=== PATIENT | male | born 1995 | race Caucasian/White ===

== ENCOUNTER 2023-02-26 10:04 | Emergency (ER) | payer OTHER, SELFPAY ==
[2023-02-26 10:08] VITALS: BP 145/88; PULSE 81; RESP 18; TEMP 37.2; O2SAT 100; BMI 26.4
--- NOTE | 2023-02-26 10:38 | ED_ITS ---
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 He states has been persistent since then. It hurts for him to swallow however has no respiratory distress. No rashes. No vomiting. No fevers. It is tender to palpation. He feels like his throat is swollen. Related Data Allergies Allergy/AdvReac Type Severity Reaction Status Date / Time No Known Drug Allergies Allergy Verified 02/26/23 10:08 Review of Systems Constitutional Constitutional: Reports system reviewed and no additional complaints, except as documented ENT Ears, Nose, Mouth, and Throat: Reports system reviewed and no additional complaints, except as documented Respiratory Respiratory: Reports system reviewed and no additional complaints, except as documented Integumentary/Breasts Skin/Breast: Reports system reviewed and no additional complaints, except as documented Hematologic/Lymphatic Hematologic/Lymphatic: Reports system reviewed and no additional complaints, except as documented Allergic/Immunologic Allergic/Immunologic: Reports system reviewed and no additional complaints, except as documented Patient History Social History Smoking Status: Never smoker Smoking Status: Never smoker alcohol intake frequency: holidays/special occasions only Substance Use Type: does not use Exam Initial Vital Signs Initial Vital Signs: Vital Signs Temperature 98.9 F 02/26/23 10:08 Pulse Rate 81 02/26/23 10:08 Respiratory Rate 18 02/26/23 10:08 Blood Pressure 145/88 H 02/26/23 10:08 Pulse Oximetry 100 02/26/23 10:08 Oxygen Delivery Method Room Air 02/26/23 10:08 HENMT Head: normal to inspection and normocephalic Mouth: oral mucosae normal and No moist mucous membranes Throat: no peritonsillar masses Neck Other: Thyroid is tender to palpation. No definitive masses seen. Resp Effort & Inspection: normal respiratory effort Skin General: no rashes or lesions noted Neuro General: patient alert, patient awake and moves all extremities Extrem General: normal to inspection and capillary refill normal Course Orders Ordered: ED Orders 02/26/23 11:35 Throat Culture Stat 02/26/23 11:40 BMP [Basic Metabolic Panel] Stat CBC Auto Diff [Complete Blood Count AUTO DIFF] Stat Free T3, Triiodothyronine Free Stat Free T4, Direct Thyroxine Stat Strep Grp A by PCR Rapid Stat TSH [Thyroid Stimulating Hormone] Stat Discontinued Medications Diphenhydramine HCl (Diphenhydramine 25 Mg Tablet) 25 mg PO NOW ONE Stop: 02/26/23 10:27 Last Admin: 02/26/23 10:46 Dose: 25 mg Documented By: VICENTE Prednisone (Prednisone 20 Mg Tablet) 20 mg PO NOW ONE Stop: 02/26/23 10:27 Last Admin: 02/26/23 10:47 Dose: 20 mg Documented By: VICENTE Vital Signs Vital signs: Vital Signs - 8 hr 02/26/23 13:34 Pulse Rate 61 Respiratory Rate 18 Blood Pressure 137/77 Pulse Oximetry 98 Oxygen Delivery Method Room Air MDM - Allergic Reaction Lab Data 02/26/23 11:40 02/26/23 11:40 Labs: Lab Results 02/26/23 Range/Units 11:40 WBC 6.1 (4.5-11.0) X10^3/uL RBC 5.42 (4.5-5.9) X10^6/uL Hgb 17.3 (13.5-17.5) g/dL Hct 49.4 (41-53) % MCV 91.2 (80-100) fL MCH 31.9 (26-34) PG MCHC 35.0 (30-36) % RDW 13.0 (11.6-14.8) % Plt Count 279 (150-400) X10^3/uL Neut % (Auto) 52.9 (50-75) % Lymph % (Auto) 33.6 (25-40) % Isabela % (Auto) 11.4 (3-14) % Eos % (Auto) 1.6 L (2-4) % Baso % (Auto) 0.5 (0-2) % Neut # (Auto) 3200 (2115-6406) /uL Lymph # (Auto) 2000 (7932-0040) /uL Isabela # (Auto) 700 (0-900) /uL Eos # (Auto) 100 (0-450) /uL Baso # (Auto) 0 (0-100) /uL Sodium 138 (137-145) mmol/L Potassium 4.1 (3.4-5.1) mmol/L Chloride 98 (98-107) mmol/L Carbon Dioxide 31 (22-32) mmol/L BUN 16 (9-20) mg/dL Creatinine 1.09 (0.66-1.25) mg/dL Estimated GFR > 60 (>60) mL/min BUN/Creatinine Ratio 14.7 (6-22) Glucose 95 (70-100) mg/dL Calcium 10.0 (8.4-10.2) mg/dL TSH 1.45 (0.47-4.68) uIU/mL Free T4 1.01 (0.78-2.19) ng/dL Free T3 4.81 (2.77-5.27) pg/mL Group A Strep (PCR) Negative (Negative) MDM Narrative Medical decision making narrative: Discomfort that the patient is describing is over his thyroid which is prominent. No nodules were felt. No respiratory distress. His oropharynx is unremarkable. He has no improvement after the Benadryl and steroids. I am not convinced that his symptoms today are related to the fish that he ate last evening. I am not convinced that he has having an allergic reaction. I am more concerned that the events are unrelated. His TSH is unremarkable. We did discuss the possibility that he is still having a thyroiditis causing an inflamed thyroid but his TSH is not yet elevated. Advised that he talk with his medical provider about this as he may need a repeat TSH if his symptoms are not improving. 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 He can try [id number] Cepacol drops and other sore throat sprays. I do not think putting him on prolonged steroids is going to improve anything. Considered ordering a thyroid ultrasound today but he does not have any specific nodules and with a normal TSH feel like this would be unhelpful as well. We will see if his symptoms improve over the next couple days. He was given specific return precautions and follow-up instructions. He expressed understanding and agreement. Discharge Plan Departure Patient Disposition: Home Clinical Impression: Sore throat Activity Restrictions/Additional Instructions: Like we discussed I am not convinced that this is an allergic reaction. There was a throat culture pending at the time of your discharge and we will contact you if we need to start any antibiotics. 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 You can use the [id number] sore throat lozenges. If your symptoms worsen or you develop any sort of lumps/bumps then you do need to be re-evaluated so that we can do an ultrasound of your thyroid. If you start to develop fevers for coughing then an evaluation for another infectious source such as COVID/flu would be needed. Return to the emergency department like we discussed. Stand Alone Forms: Patient Portal/API
[2023-02-26] MEDS: diphenhydrAMINE 25 MG TABLET PO (10:46)
[2023-02-26] MEDS: predniSONE 20 MG TABLET PO (10:47)
[2023-02-26 11:51] LABS: Add Manual Diff / Slide Review NO; Basophils Absolute Auto 0 /uL (0-100); Basophils Percent Auto 0.5 % (0-2); Eosinophils Absolute Auto 100 /uL (0-450); Eosinophils Percent Auto 1.6 % (2-4); Hematocrit 49.4 % (41-53); Hemoglobin 17.3 g/dL (13.5-17.5); Lymphocytes Absolute Auto 2000 /uL (1100-4500); Lymphocytes Percent Auto 33.6 % (25-40); Mean Corpuscular Hemoglobin 31.9 PG (26-34); Mean Corpuscular Volume 91.2 fL (80-100); Monocytes Absolute Auto 700 /uL (0-900); Monocytes Percent Auto 11.4 % (3-14); Neutrophils Absolute Auto 3200 /uL (1500-7000); Neutrophils Percent Auto 52.9 % (50-75); Platelet Count 279 X10^3/uL (150-400); Red Blood Cell Count 5.42 X10^6/uL (4.5-5.9); White Blood Cell Count 6.1 X10^3/uL (4.5-11.0)
[2023-02-26 11:59] LABS: Strep Grp A by PCR Rapid Negative (Negative)
[2023-02-26 12:03] LABS: BUN Creatinine Ratio 14.7 (6-22); Blood Urea Nitrogen 16 mg/dL (9-20); Carbon Dioxide 31 mmol/L (22-32); Chloride 98 mmol/L (98-107); Estimated Glomerular Filt Rate > 60 mL/min (>60); Glucose 95 mg/dL (70-100); HEMOLYSIS 16 (0-50); Potassium 4.1 mmol/L (3.4-5.1); Sodium 138 mmol/L (137-145)
[2023-02-26 12:34] LABS: Free T3, Triiodothyronine Free 4.81 pg/mL (2.77-5.27); Free T4, Direct Thyroxine 1.01 ng/dL (0.78-2.19)
[2023-02-26 12:48] LABS: Thyroid Stimulating Hormone 1.45 uIU/mL (0.47-4.68)
[2023-02-26 13:34] VITALS: BP 137/77; PULSE 61; RESP 18; O2SAT 98
== END 2023-02-26 13:36 | disposition home or self-care (01) ==
PROVIDERS: Emergency Provider Emergency Medicine
DX: J02.9 Acute pharyngitis, unspecified (principal)
CPT/HCPCS: 36415; 80048; 84439; 84443; 84481; 85025; 87070; 87651; 99283